=== PATIENT | male | born 1995 | race Caucasian/White ===

== ENCOUNTER 2019-01-08 19:16 | Emergency (ER) | payer SELFPAY ==
--- NOTE | 2019-01-08 19:39 | ED.PDOC ---
History of Present Illness - General Chief Complaint: Abdominal Pain Stated Complaint: abdominal pain Time Seen by Provider: 01/08/19 19:31 Information Source: patient, RN notes reviewed, Vital Signs reviewed Exam Limitations: no limitations Additional Information: this is a 24-year-old gentleman who presents to the emergency room with complaints of abdominal discomfort starting this morning when he awakened. He states the last thing he ate prior to having the abdominal discomfort was a club sandwich last night. He denies having any fever or chills. He has been nauseated most of the day but did try to eat a sandwich earlier today. He states that he finished half of it. He has not had any diarrhea but had a normal bowel movement earlier today. He denies having history of reflux and seldom takes anything for that. He did try some Pepto-Bismol earlier today without much effect. His discomfort is more in the epigastric area. He has never had any abdominal surgeries. He does not take any medications. He states that he smokes about one pack per day of tobacco. He does not use alcohol often and does not use NSAIDs often. 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 Review of Systems - Review of Systems Constitutional: States: no symptoms reported, malaise. Denies: chills, diaphoresis, fever EENTM: States: no symptoms reported Respiratory: States: no symptoms reported Cardiology: States: no symptoms reported Gastrointestinal/Abdominal: States: abdominal pain, nausea. Denies: constipation, diarrhea, vomiting Genitourinary: States: no symptoms reported Musculoskeletal: States: no symptoms reported Skin: States: no symptoms reported Neurological: States: no symptoms reported Endocrine: States: no symptoms reported Hematologic/Lymphatic: States: no symptoms reported All other Systems: Reviewed and Negative Family Medical History - Family History Father Family History: Unknown Physical Exam - Physical Exam General Appearance: Alert, No apparent distress Eyes, Ears, Nose, Throat Exam: PERRL/EOMI, normal ENT inspection, TMs normal, pharynx normal Neck: non-tender, full range of motion, supple, normal inspection Respiratory: chest non-tender, lungs clear, normal breath sounds, no respiratory distress, no accessory muscle use Cardiovascular/Chest: normal peripheral pulses, regular rate, rhythm, no edema, no gallop, no JVD, no murmur Peripheral Pulses: No deficit, 2+ Gastrointestinal/Abdominal: normal bowel sounds, soft, no organomegaly, no pulsatile mass, tenderness - midepigastric region no rebound or guarding Rectal Exam: deferred Back Exam: normal inspection, no CVA tenderness Extremity: normal range of motion, non-tender, normal inspection, no pedal edema 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 He states that the GI cocktail did help to ease his discomfort. His laboratory studies were unremarkable. All questions were answered. Patient agrees with plan. - Results/Orders Results/Orders: Laboratory Tests 01/08/19 01/08/19 01/08/19 19:50 19:50 19:50 WBC 3.9 L RBC 5.11 Hgb 15.4 Hct 46.1 MCV 90.1 MCH 30.1 MCHC 33.4 RDW 13.8 Plt Count 196 MPV 8.7 Absolute Neuts (auto) 2.00 Absolute Lymphs (auto) 1.30 Absolute Monos (auto) 0.40 Absolute Eos (auto) 0.10 Absolute Basos (auto) 0.00 Neutrophils % 51.5 Lymphocytes % 34.2 Monocytes % 11.3 H Eosinophils % 2.2 Basophils % 0.8 Sodium 137 Potassium 4.0 Chloride 100 L Carbon Dioxide 25 Anion Gap 16.0 BUN 18 Creatinine 1.07 BUN/Creatinine Ratio 16.8 Random Glucose 83 Serum Osmolality 274.9 L Lactic Acid 1.3 Calcium 9.3 Total Bilirubin 1.2 H AST 20 ALT 17 Alkaline Phosphatase 66 Serum Total Protein 7.8 Albumin 4.7 Globulin 3.1 Albumin/Globulin Ratio 1.5 Departure - Departure Clinical Impression: Acute gastritis without bleeding Qualifiers: Gastritis type: unspecified gastritis Qualified Code(s): K29.00 - Acute gastr itis without bleeding Time of Disposition: 20:36 Disposition: Discharge to Home or Self Care Condition: Good Departure Forms: ED Discharge - Pt. Copy, Patient Portal Self Enrollment Instructions: DI for Abdominal Pain-Adult Diet: bland diet Prescriptions: Ondansetron Tab [Zofran Tab] 4 mg PO Q6HRS #12 tab Pantoprazole Tablet [Protonix] 40 mg PO ACBK #14 tab Home Medications: Ambulatory Orders Ondansetron Tab [Zofran Tab] 4 mg PO Q6HRS #12 tab 01/08/19 Pantoprazole Tablet [Protonix] 40 mg PO ACBK #14 tab 01/08/19 Additional Instructions: stay well-hydrated. Take medications as prescribed. If any worsening of symptoms or fever follow up with PCP or present to emergency room for reevaluation. Keep diet blandfor the next couple of days.
[2019-01-08] MEDS ORDERED: ALUM & MAG HYDROX-SIMETHICONE 30 ML, LIDOCAINE VISCOUS 2% 15 ML PO ONE ×2 (19:42)
[2019-01-08] MEDS ORDERED: ONDANSETRON INJ 4 MG/2 ML VIAL IV ONE (19:42)
[2019-01-08] MEDS ORDERED: SODIUM CHLORIDE 0.9% 1000ML 1,000 ML IVS ONE (19:42)
[2019-01-08] MEDS ORDERED: PANTOPRAZOLE SODIUM IV 40 MG VIAL IV ONE (19:43)
[2019-01-08] MEDS ORDERED: ALUM & MAG HYDROX-SIMETHICONE 30 ML UD ONE (19:56)
[2019-01-08] MEDS ORDERED: LIDOCAINE HCL 2% (MOUTH-THROAT) 15 ML UD ONE (19:56)
[2019-01-08 20:57] VITALS: BP 104/62; TEMP 97.9; O2SAT 99
== END 2019-01-08 20:57 | disposition home or self-care (01) ==
LOC: ER 19:16
DX: K29.00 Acute gastritis without bleeding (principal); F17.210 Nicotine dependence, cigarettes, uncomplicated
CPT/HCPCS: 36415; 80053; 81001; 83605; 85025; J2405; J7030